=== PATIENT | female | born 1955 | race Two or more races ===

== ENCOUNTER 2017-11-05 11:30 | Inpatient (IN) | payer OTHER ==
[~2017-11-05] VITALS: Ht 180.3 cm; Wt 81.6 kg
[2017-11-05] MEDS ORDERED: ATENOLOL25 MG PO (13:35)
[2017-11-05] MEDS ORDERED: PAXIL CR37.5 MG PO (13:35)
[2017-11-05] MEDS ORDERED: PLAQUENIL PO (13:35)
[2017-11-05] MEDS ORDERED: EMBREL (13:36)
[2017-11-05] MEDS ORDERED: CLONAZEPAM1 MG PO (13:37)
[2017-11-05] MEDS ORDERED: TREXALL5 MG PO (13:37)
[2017-11-13] MEDS ORDERED: DOCUSATE SODIU100 MG PO (12:04)
[2017-11-13] MEDS ORDERED: GABAPENTIN800 MG PO (12:04)
[2017-11-13] MEDS ORDERED: CLONAZEPAM1 MG PO (12:05)
[2017-11-13] MEDS ORDERED: PERCOCET 5-3251 EACH PO (12:05)
== END 2017-11-13 13:09 | disposition home or self-care (01) | DRG 455 ==
LOC: SURH 11-12 04:55 → O/R 11-12 04:55 → SURH 11-12 07:00
PROVIDERS: Orthopaedic Surgery Orthopaedic Surgery of the Spine
PROC: 0RG20A0 Fusion of 2 or more Cervical Vertebral Joints with Interbody Fusion Device, Anterior Approach, Anterior Column, Open Approach (ICD-10-PCS; 2017-11-12)
PROC: 0RG20K1 Fusion of 2 or more Cervical Vertebral Joints with Nonautologous Tissue Substitute, Posterior Approach, Posterior Column, Open Approach (ICD-10-PCS; 2017-11-12)
PROC: 0RT30ZZ Resection of Cervical Vertebral Disc, Open Approach (ICD-10-PCS; principal; 2017-11-12 07:00)
DX: M47.22 Other spondylosis with radiculopathy, cervical region (principal); M50.121 Cervical disc disorder at C4-C5 level with radiculopathy; I10 Essential (primary) hypertension

== ENCOUNTER 2021-04-04 10:30 | Inpatient (IN) | payer OTHER ==
[~2021-04-04] VITALS: Ht 180.3 cm; Wt 87.1 kg
[~2021-04-04 10:30] MED LIST: ATENOLOL25 MG PO; CLONAZEPAM1 MG PO; DOCUSATE SODIU100 MG PO; EMBREL; GABAPENTIN800 MG PO; PAXIL CR37.5 MG PO; PERCOCET 5-3251 EACH PO; PLAQUENIL PO; TREXALL5 MG PO
[2021-04-11] MEDS ORDERED: DIAZEPAM5 MG PO (12:44)
[2021-04-11] MEDS ORDERED: MEDROLPACK PO (12:44)
[2021-04-11] MEDS ORDERED: AMOX-CLAV 875-1 EACH PO (12:44)
[2021-04-11] MEDS ORDERED: COLACE100 MG PO (12:44)
[2021-04-11] MEDS ORDERED: PERCOCET 5-3251 EACH PO (12:44)
[2021-04-11] MEDS ORDERED: NEURONTIN800 MG PO (12:44)
== END 2021-04-12 18:42 | disposition home or self-care (01) | DRG 458 ==
LOC: O/R 04-11 08:25 → SURH 04-11 10:30 → SURG 04-11 20:32
PROVIDERS: ADMIT Orthopaedic Surgery Orthopaedic Surgery of the Spine; ATTEND Orthopaedic Surgery Orthopaedic Surgery of the Spine
PROC: 3E0U0GB Introduction of Recombinant Bone Morphogenetic Protein into Joints, Open Approach (ICD-10-PCS; 2021-04-11)
PROC: 07DR0ZZ Extraction of Iliac Bone Marrow, Open Approach (ICD-10-PCS; 2021-04-11)
PROC: 0SG10AJ Fusion of 2 or more Lumbar Vertebral Joints with Interbody Fusion Device, Posterior Approach, Anterior Column, Open Approach (ICD-10-PCS; principal; 2021-04-11 15:30)
DX: M41.56 Other secondary scoliosis, lumbar region (principal); M48.062 Spinal stenosis, lumbar region with neurogenic claudication; Y83.8 Other surgical procedures as the cause of abnormal reaction of the patient, or of later complication, without mention of misadventure at the time of the procedure